=== PATIENT | male | born 1975 | race Two or more races ===

== ENCOUNTER 2024-06-30 20:13 | Emergency (ER) | payer SELFPAY ==
[~2024-06-30] VITALS: Ht 175.3 cm; Wt 79.5 kg
[2024-06-30 20:15] VITALS: BP 128/87; PULSE 78; RESP 16; TEMP 99.1; O2SAT 97
[2024-06-30] MEDS: KETOROLAC TROMETHAMINE 60 MG/2 ML VIAL IM ONE (23:11)
[2024-07-01] MEDS ORDERED: IBUP-1492 PO (00:32)
== END 2024-07-01 00:57 | disposition home or self-care (01) ==
LOC: EMS 20:13
DX: S20.212A Contusion of left front wall of thorax, initial encounter (principal); V19.88XA Pedal cyclist (driver) (passenger) injured in other specified transport accidents, initial encounter; Y93.89 Activity, other specified; Y92.89 Other specified places as the place of occurrence of the external cause; Y99.8 Other external cause status
CPT/HCPCS: 99283; 71045; 96372; J1885